=== PATIENT | male | born 1960 | race Hispanic/Latino ===

== ENCOUNTER 2019-01-10 05:42 | Day surgery (SDC) | payer BC ==
[2019-01-08 12:05] VITALS: BP 140/84
[2019-01-08 12:23] LABS: BASOPHILS % (AUTO) 0.3 % (0.0-5.0); EOSINOPHILS % (AUTO) 1.3 % (0.0-8.0); LYMPHOCYTES % (AUTO) 27.8 % (21.0-51.0); MEAN CORPUSCULAR HEMOGLOBIN 30.9 pg (27.0-33.0); MEAN CORPUSCULAR HGB CONC 33.7 g/dL (32.0-36.0); MEAN CORPUSCULAR VOLUME 91.6 fL (79-99); MONOCYTES % (AUTO) 6.4 % (3.0-13.0); NEUTROPHILS % (AUTO) 64.2 % (40.0-77.0); NUCLEATED RED BLOOD CELLS 0.1 % (0.0-0.19); PLATELET COUNT (AUTO) 156 K/uL (130-400); RED BLOOD CELL COUNT(AUTO) 6.22 MIL/uL (4.50-6.20); RED CELL DISTRIBUTION WIDTH 14.4 % (11.0-15.5); WHITE BLOOD COUNT (AUTO) 8.7 K/uL (4.8-10.8)
[2019-01-08 12:31] LABS: BILIRUBIN,URINE Negative (NEGATIVE); COLOR,URINE Yellow (YELLOW); GLUCOSE, URINE (UA) Negative (NEGATIVE); KETONES,URINE Negative (NEGATIVE); LEUKOCYTE ESTERASE ,URINE Negative (NEGATIVE); NITRATE,URINE Negative (NEGATIVE); OCCULT BLOOD,URINE Negative (NEGATIVE); PROTEIN,URINE Negative (NEGATIVE)
[2019-01-08 12:32] LABS: POTASSIUM 4.9 mmol/L (3.5-5.1)
[2019-01-08 12:36] LABS: INR 1.09 (0.85-1.15); PARTIAL THROMBOPLASTIN TIME 29.6 SEC (26.3-35.5); PROTHROMBIN TIME 11.4 SEC (9.6-11.6)
[2019-01-08 12:52] LABS: APPEARANCE,URINE CLEAR (CLEAR)
[2019-01-10] VITALS (11 sets, daily range): BP systolic 109–137; BP diastolic 70–78
[~2019-01-10] VITALS: Ht 170.2 cm; Wt 92.3 kg
[~2019-01-10 05:42] MED LIST: AEC81 PO; ALPR1TAB7 PO; DILT180C51 PO; LISI-613 PO; METF-444 PO; MIRT30TA PO
--- NOTE | 2019-01-10 05:50 | NUR ---
PRE-PROCEDURE RECEIVED FROM HOME TO DAY 16 VIA AMBULATING FOR [facility]. CONNECTED TO CONTINUOUS CARDIOPULMONARY MONITORING. Addendum: 01/10/19 at 0924 by MARLYN VARELA RN RN AWAKE IN NO ACUTE DISTRESS. DENIES PAIN. SIDE RAILS UP X2, BED IN LOWEST POSITION, AND CALL LIGHT W/IN REACH.
[2019-01-10] MEDS ORDERED: SODIUM CHLORIDE 0.9% 1000ML 1,000 ML IV ONE (06:09)
--- NOTE | 2019-01-10 06:30 | NUR ---
PSYCHOSOCIAL WHEN ASKED ABOUT HAVING THOUGHTS OF WANTING TO HURT HIMSELF HE STATED "YES" AND STARTED CRYING. HE REPORTS THAT HE FEELS SAD. PER PT HE STOPPED WORKING 2 YEARS AGO BECAUSE "IT WAS TO MUCH STRESS AND I WAS HAVING A LOT OF PROBLEMS. I WISH I COULD WORK BECAUSE ITS HARD BEING AT HOME EVERYDAY." HE REPORTS THAT HE FEELS BAD BECAUSE HIS WORKS A LOT SINCE HE IS NOT WORKING. HE SEES DR. TREVOR OBREGON OUTPT AND HAS AN APPT. IN NEXT COUPLE OF WEEKS. TAKES REMERON DAILY AND ALPRAZOLAM NEEDED. HE REPORTS THAT THE REMERON MAKES HIM FEEL "LIKE NOT DOING ANYTHING". Addendum: 01/10/19 at 0918 by MARLYN VARELA RN RN ENCOURAGED PT TO LET DR. OBREGON KNOW HOW HE IS FEELING AT HIS APPT. VERBALIZED UNDERSTANDING.
[2019-01-10] MEDS ORDERED: ISOS30TA6 PO (07:21)
[2019-01-10] MEDS ORDERED: IOHEXOL 350 MG/ML 100ML INFUS..BTL IV ONE ×2 (14:45→15:29)
[2019-01-10] MEDS ORDERED: IOHEXOL-350 50ML VIAL IV ONE (14:45)
[2019-01-10] MEDS ORDERED: LIDOCAINE HCL 2% 20ML ONE (14:45)
[2019-01-10] MEDS ORDERED: NITROGLYCERIN 5 MG/ML 10 ML VIAL IV ONE (14:45)
--- NOTE | 2019-01-10 14:45 | NUR ---
PROCEDURE TRANSFERRED TO [employer]ICE COMMANDING OFFICER VIA BED BY RUBI TREVIÑO. AWAKE IN NO ACUTE DISTRESS.
--- NOTE | 2019-01-10 15:19 | NUR ---
REPORT REPORT GIVEN TO RUBI GARDNER USING SBAR. VERBALIZED UNDERSTANDING.
[2019-01-10] MEDS ORDERED: MIDAZOLAM HCL 1 MG/ML 2ML VIAL ONE (15:21)
[2019-01-10] MEDS ORDERED: SODIUM CHLORIDE 0.9% 1000ML 1,000 ML IV SCH (15:57)
[2019-01-10] MEDS ORDERED: GLUCAGON 1MG KIT 1 MG ML IM PRN (16:00)
[2019-01-10] MEDS ORDERED: DEXTROSE 50%-WATER 50 ML DISP.SYRIN IV PRN (16:00)
--- NOTE | 2019-01-10 16:18 | NUR ---
CATH RECEIVED PT FROM OUTDOOR RECREATION SPECIALIST, S/P LEFT HEART CATH, RIGHT GROIN DRESSING DRY AND INTACT PERCLOSE PROGLIDE DEVICE DRESSING NEUROVASCULAR CHECKS WNL. VS STABLE. PT LYING IN BED, DENIES ANY PAIN OR DISCOMFORTS. AT BEDSIDE. PT APPEARS IN GOOD SPIRITS.
--- NOTE | 2019-01-10 18:55 | NUR ---
DC DC INSTRUCTIONS GIVEN TO PT SPOUSE , INSTRUCTED TO F/U WITH DR. DAWSON .
--- NOTE | 2019-01-10 19:04 | NUR ---
DC PT DC HOME ,NO DISTRESS NOTED. DENIES ANY PAIN OR DISCOMFORTS. RIGHT GROIN DRESSING DRY AND INTACT, PT ACCOMPANIED BY SPOUSE ,NO PIV NOTED.
== END 2019-01-10 19:04 | disposition home or self-care (01) ==
LOC: DAH 05:42
PROVIDERS: ATTEND Internal Medicine Cardiovascular Disease
DX: I35.0 Nonrheumatic aortic (valve) stenosis (principal); I48.91 Unspecified atrial fibrillation; I10 Essential (primary) hypertension; E78.5 Hyperlipidemia, unspecified; E11.9 Type 2 diabetes mellitus without complications; Z79.84 Long term (current) use of oral hypoglycemic drugs; Z79.899 Other long term (current) drug therapy; Z98.890 Other specified postprocedural states; Z68.31 Body mass index [BMI] 31.0-31.9, adult; Z79.01 Long term (current) use of anticoagulants; I44.5 Left posterior fascicular block
CPT/HCPCS: 36415; 71045; 80048; 81003; 82948 ×3; 85025; 85610; 85730; 93005; 93454; 93567; A4606; C1760; C1894; J1644; J2250; J3490 ×2; J7030; Q9965 ×2; Q9967 ×3; 99156; 99157